=== PATIENT | female | born 1970 | race Caucasian/White ===

== ENCOUNTER 2016-06-16 00:04 | Inpatient (IN) | payer MEDICAID, OTHER ==
[2016-06-16] VITALS (8 sets, daily range): BP systolic 96–121; BP diastolic 60–85; PULSE 66–98; RESP 16–20; TEMP 95.5–98; O2SAT 92–100
[~2016-06-16] VITALS: Ht 182.9 cm; Wt 88.0 kg
[~2016-06-16 00:04] MED LIST: OXYC1TAB36 PO; TRAM50TA PO; ZOFR4TAB3 SL
[2016-06-16] MEDS ORDERED: SODIUM CHLOR 0.9% 1000 ML INJ 1,000 ML IV SCH ×2 (01:11→03:30)
[2016-06-16] MEDS ORDERED: HYDROmorphone HCL PF 2 MG/ML VIAL IVS ONE (01:15)
[2016-06-16] MEDS ORDERED: ONDANSETRON HCL 4 MG/2 ML VIAL IVP ONE (01:15)
[2016-06-16 01:35] LABS: AUTOMATED NEUTROPHIL # 5.6 TH/MM3 (1.8-7.7); BASOPHIL % 0.4 % (0.0-2.0); EOSINOPHIL # 0.1 TH/MM3 (0-0.4); HEMATOCRIT 43.1 % (35.0-46.0); HEMO FLAGS DIFF FINAL; LYMPH % 14.1 % (9.0-44.0); MEAN CELL VOLUME 87.5 FL (80.0-100.0); MEAN CORPUSCULAR HEMOGLOBIN 29.2 PG (27.0-34.0); MEAN CORPUSCULAR HGB CONC 33.4 % (32.0-36.0); MONO % 8.3 % (0.0-8.0); NEUT % 75.2 % (16.0-70.0); PLATELET COUNT 182 TH/MM3 (150-450); RED BLOOD COUNT 4.93 MIL/MM3 (4.00-5.30); RED CELL DISTRIBUTION WIDTH 12.6 % (11.6-17.2); WHITE BLOOD COUNT 7.4 TH/MM3 (4.0-11.0)
[2016-06-16 01:36] LABS: BLOOD, URINE NEG (NEG); GLUCOSE,URINE 100 mg/dL (NEG); KETONE, URINE 40 mg/dL (NEG); NITRITE,URINE NEG (NEG)
[2016-06-16 01:40] LABS: URINE COLOR AMBER (YELLW/STRAW)
[2016-06-16 01:41] LABS: BACTERIA, URINE RARE /hpf; COMMENT (UR) CULT NOT INDICATED; CULTURE IF INDICATED CULT NOT INDICATED; RBC, URINE 0-2 /hpf (0-3); SQUAMOUS EPITHELIAL CELL URINE > 8 /hpf (0-5); WBC, URINE 0-2 /hpf (0-5)
[2016-06-16 01:43] LABS: CHLORIDE 108 MEQ/L (98-107); POTASSIUM 3.5 MEQ/L (3.5-5.1); SODIUM (NA) 142 MEQ/L (136-145)
[2016-06-16 01:46] LABS: ANION GAP 9 MEQ/L (5-15); BICARBONATE 25.1 MEQ/L (21.0-32.0)
[2016-06-16 01:47] LABS: BLOOD UREA NITROGEN 17 MG/DL (7-18)
[2016-06-16 01:49] LABS: ALT (GPT) 409 U/L (10-53); AST (GOT) 599 U/L (15-37); GLOMERULAR FILTRATION RATE 71 ML/MIN (>89)
[2016-06-16 01:51] LABS: TOTAL BILIRUBIN ADULT 2.2 MG/DL (0.2-1.0)
[2016-06-16 02:02] LABS: ALKALINE PHOSPHATASE 172 U/L (45-117)
[2016-06-16] MEDS ORDERED: IOHEXOL 350 MG/ML 10 ML VIAL (for RAD DIAG) IV ONE (02:51)
--- NOTE | 2016-06-16 03:07 | RADHPO ---
EXAM DATE/TIME: 06/16/2016 02:28 [place] COMPARISON: CT ABDOMEN & PELVIS W CONTRAST, April 24, 2016, 20:41. INDICATIONS : Right upper quadrant pain with nausea and vomiting. IV CONTRAST: 94 cc Omnipaque 350 (iohexol) IV ORAL CONTRAST: No oral contrast ingested. RADIATION DOSE: 12.37 CTDIvol (mGy) MEDICAL HISTORY : Gastroesophageal reflux disease. Renal calculi. SURGICAL HISTORY : Hysterectomy. ENCOUNTER: Initial ACUITY: 1 day PAIN SCALE: 7/10 LOCATION: Right upper quadrant TECHNIQUE: Volumetric scanning of the abdomen and pelvis was performed. Using automated exposure control and ad justment of the mA and/or kV according to patient size, radiation dose was kept as low as reasonably achievable to obtain optimal diagnostic quality images. FINDINGS: LOWER LUNGS: Trace atelectasis right lung base. LIVER: Homogeneous density without lesion. There is no dilation of the biliary tree. Numerous small stones are seen in the gallbladder. Common bile duct measures approximate 6.5 mm. Possible stone in the mid duct, series 601 image 36 and possible stone in the more distal duct, series 2 image 35. SPLEEN: Normal size without lesion. PANCREAS: Pancreas is swollen and there is libia-pancreatic edema/non-organized fluid, especially around the bod y. No perceptible mass. No evidence of parenchymal necrosis. KIDNEYS: Normal in size and shape. 1 cm simple, benign cyst seen in the right mid zone There is no solid mass , stone or hydronephrosis. Unchanged focal scarring on the left. ADRENAL GLANDS: Within normal limits. VASCULAR: There is no aortic aneurysm. BOWEL/MESENTERY: The stomach, small bowel, and colon demonstrate no acute abnormality. There is no free intraperitone al air or fluid. ABDOMINAL WALL: Within normal limits. RETROPERITONEUM: There is no lymphadenopathy. BLADDER: No wall thickening or mass. REPRODUCTIVE: There are cysts of the right ovary that measure up to 32 mm in size. INGUINAL: There is no lymphadenopathy or hernia. MUSCULOSKELETAL: Within normal limits for patient age. CONCLUSION: 1. Moderate severity acute pancreatitis. Considerable peripancreatic edema but nothing organized or d rainable. No evidence of parenchymal necrosis. 2. Cholelithiasis; numerous small stones are seen in the gallbladder and the CT suggests the possibil ity of stones in the mid and distal portions of the common bile duct. Please see above. 3. Right ovarian cysts. 4. Trace atelectasis of the right lung base. Antwan Ogden MD on June 16, 2016 at 2:58 Board Certified Radiologist. This report was verified electronically.
[2016-06-16] MEDS ORDERED: HYDROmorphone HCL PF 1 MG/ML VIAL IV PUSH ONE (03:15)
--- NOTE | 2016-06-16 03:24 | PD ---
HPI Chief Complaint: GI Complaint Time Seen by Provider: 01:11 Travel History International Travel<30 days: No Contact w/Intl Traveler<30days: No Traveled to known affect area: No History of Present Illness HPI 45 year-old female presents to the emergency department by private transportation for complaint of abdominal pain since Friday morning. Patient states she is unable to tolerate oral hydration or oral intake secondary to nausea and vomiting. Patient states she's been trying to eat oatmeal and cottage cheese. Patient has had diagnosis of gallstones for a while now but has not been able to see a surgeon. Patient reportedly is scheduled to see a surgeon 28 June she was required to see a primary care provider first. Patient has had no fever or chills. No hematemesis or coffee-ground emesis no melena hematochezia. Patient is status post hysterectomy. Patient rates pain as 8/10 in intensity. Patient states pain as generalized but primarily epigastric and right upper quadrant. Patient denies any dysuria frequency or urgency and has had no flank pain. Patient denies shortness of breath or chest pain. Patient reports she has been prescribed tramadol for pain management which has provided no relief. Patient reportedly has undergone CT and ultrasound imaging of the gallbladder and kidneys to the emergency department here to the [employer] [facility] system and to [facility] in [place]. PFSH Past Medical History Narrative Medical Gallstones, kidney stones, GERD, , hysterectomy Ab1 positive tobacco use nursing notes reviewed Diminished Hearing: No Gastrointestinal Disorders: Yes (GALL STONES) GERD: Yes Kidney Stones: Yes Immunizations Current: Yes Tetanus Vaccination: < 5 Years Influenza Vaccination: No ?: Not : 4 Para: 3 Miscarriage: 1 Past Surgical History Section: Yes (X1) Gynecologic Surgery: Yes (hysterectomy and ) Hysterectomy: Yes Social History Alcohol Use: No Tobacco Use: Yes (/2 PPD) Substance Use: No Allergies-Medications (Allergen,Severity, Reaction): Coded Allergies: No Known Allergies (Verified , 06/16/16) Reported Meds & Prescriptions Reported Meds & Active Scripts Active Tramadol (Tramadol HCl) 50 Mg Tab 50 Mg PO Q8H PRN Review of Systems Except as stated in HPI: all other systems reviewed are Neg General / Constitutional: No: Fever, Chills Eyes: No: Visual changes HENT: No: Headaches, Congestion Cardiovascular: No: Chest Pain or Discomfort Respiratory: No: Shortness of Breath Gastrointestinal: Positive: Nausea, Vomiting, Abdominal Pain, No: Diarrhea, Hematemesis, Hematochezia, Constipation, Changes in Bowel Habits, Loss of Appetite Genitourinary: No: Urgency, Frequency, Dysuria, Flank Pain Musculoskeletal: No: Myalgias, Arthralgias Skin: No Rash Neurologic: No: Weakness Psychiatric: No: Anxiety Hematologic/Lymphatic: No: Lymph Node Enlargement Physical Exam Narrative GENERAL: Well-developed well-nourished female in no acute distress no respiratory distress SKIN: Warm and dry. HEAD: Normocephalic. EYES: No scleral icterus. No injection or drainage. NECK: Supple, trachea midline. No JVD or lymphadenopathy. CARDIOVASCULAR: Regular rate and rhythm without murmurs, gallops, or rubs. RESPIRATORY: Breath sounds equal bilaterally. No accessory muscle use. GASTROINTESTINAL: Abdomen soft, diffusely tender with localized tenderness to the epigastric and right upper quadrant without guarding or rebound, nondistended. MUSCULOSKELETAL: No cyanosis, or edema. BACK: Nontender without obvious deformity. No CVA tenderness. Data Data Last Documented VS Vital Signs Date Time Temp Pulse Resp B/P Pulse Ox O2 Delivery O2 Flow Rate FiO2 06/16/16 01:59 73 16 117/71 98 Room Air 06/16/16 00:13 97.3 Orders Complete Blood Count With Diff (06/16/16 01:11) Comprehensive Metabolic Panel (06/16/16 01:11) Lipase (06/16/16 01:11) Urinalysis - C+S If Indicated (06/16/16 01:11) Iv Access Insert/Monitor (06/16/16 01:11) Hydromorphone Pf Inj (Dilaudid Pf Inj) (06/16/16 01:15) Ondansetron Inj (Zofran Inj) (06/16/16 01:15) Sodium Chlor 0.9% 1000 Ml Inj (Ns 1000 M (06/16/16 01:11) Ct Abd/Pel W Iv Contrast(Rout) (06/16/16 ) Iohexol 350 Inj (Omnipaque 350 Inj) (06/16/16 02:51) Hydromorphone Pf Inj (Dilaudid Pf Inj) (06/16/16 03:15) Sodium Chlor 0.9% 1000 Ml Inj (Ns 1000 M (06/16/16 03:30) Sodium Chlor 0.9% 1000 Ml Inj (Ns 1000 M (06/16/16 03:30) NPO (06/16/16 03:24) Piperacil-Tazo 4.5 Gm Premix (Zosyn 4.5 (06/16/16 03:30) Admit To Inpatient (06/16/16 ) Vital Signs (Adult) Q4H (06/16/16 03:23) Activity Oob With Assistance (06/16/16 03:23) Admit Order (Ed Use Only) (06/16/16 ) Intake + Output JOSE.QSHIFT (06/16/16 03:23) ^ Saline Lock (06/16/16 03:25) Diet Npo (06/16/16 Breakfast) Sodium Chlor 0.9% 1000 Ml Inj (Ns 1000 M (06/16/16 03:23) Resp Oxygen Tristian C Titrat 1-4 L (06/16/16 ) Sodium Chloride 0.9% Flush (Ns Flush) (06/16/16 03:30) ^ Notify Dr: Other (06/16/16 03:25) Sodium Chloride 0.9% Flush (Ns Flush) (06/16/16 09:00) Sodium Chloride 0.9% Flush (Ns Flush) (06/16/16 09:00) Ondansetron Inj (Zofran Inj) (06/16/16 03:30) Sodium Chloride 0.9% Flush (Ns Flush) (06/16/16 03:30) Bisacodyl Supp (Dulcolax Supp) (06/16/16 03:30) Comprehensive Metabolic Panel (06/17/16 06:00) Complete Blood Count With Diff (06/17/16 06:00) Lipase (06/17/16 06:00) Scd Bilateral/Knee High JOSE.BID (06/16/16 03:23) [place] Bilateral/Knee High JOSE.QSHIFT (06/16/16 03:23) Acetaminophen (Tylenol) (06/16/16 03:30) Hydromorphone Pf Inj (Dilaudid Pf Inj) (06/16/16 03:30) Oxycodone (Roxicodone) (06/16/16 03:30) Inpatient Certification (06/16/16 ) Direct Bilirubin (06/16/16 00:25) Labs Laboratory Tests Test 06/16/16 06/16/16 00:25 01:20 White Blood Count 7.4 TH/MM3 Red Blood Count 4.93 MIL/MM3 Hemoglobin 14.4 GM/DL Hematocrit 43.1 % Mean Corpuscular Volume 87.5 FL Mean Corpuscular Hemoglobin 29.2 PG Mean Corpuscular Hemoglobin 33.4 % Concent Red Cell Distribution Width 12.6 % Platelet Count 182 TH/MM3 Mean Platelet Volume 11.7 FL Neutrophils (%) (Auto) 75.2 % Lymphocytes (%) (Auto) 14.1 % Monocytes (%) (Auto) 8.3 % Eosinophils (%) (Auto) 2.0 % Basophils (%) (Auto) 0.4 % Neutrophils # (Auto) 5.6 TH/MM3 Lymphocytes # (Auto) 1.0 TH/MM3 Monocytes # (Auto) 0.6 TH/MM3 Eosinophils # (Auto) 0.1 TH/MM3 Basophils # (Auto) 0.0 TH/MM3 CBC Comment DIFF FINAL Differential Comment Prothrombin Time 11.2 SEC Prothromb Time International 1.0 RATIO Ratio Sodium Level 142 MEQ/L Potassium Level 3.5 MEQ/L Chloride Level 108 MEQ/L Carbon Dioxide Level 25.1 MEQ/L Anion Gap 9 MEQ/L Blood Urea Nitrogen 17 MG/DL Creatinine 0.87 MG/DL Estimat Glomerular Filtration 71 ML/MIN Rate Random Glucose 76 MG/DL Calcium Level 8.9 MG/DL Total Bilirubin 2.2 MG/DL Direct Bilirubin 1.2 MG/DL Aspartate Amino Transf 599 U/L (AST/SGOT) Alanine Aminotransferase 409 U/L (ALT/SGPT) Alkaline Phosphatase 172 U/L Total Protein 7.0 GM/DL Albumin 3.6 GM/DL Lipase GREATER THAN 38496 U/L Urine Color AVA Urine Turbidity CLEAR Urine pH 8.0 Urine Specific [place] 1.028 Urine Protein 30 mg/dL Urine Glucose (UA) 100 mg/dL Urine Ketones 40 mg/dL Urine Occult Blood NEG Urine Nitrite NEG Urine Bilirubin NEG Urine Leukocyte Esterase NEG Urine RBC 0-2 /hpf Urine WBC 0-2 /hpf Urine Squamous Epithelial > 8 /hpf Cells Urine Bacteria RARE /hpf Microscopic Urinalysis Comment CULT NOT INDICATED MDM Medical Decision Making Medical Screen Exam Complete: Yes Emergency Medical Condition: Yes Medical Record Reviewed: Yes Interpretation(s) CT abd/pel w/ contrast: CONCLUSION: 1. Moderate severity acute pancreatitis. Considerable peripancreatic edema but nothing organized or drainable. No evidence of parenchymal necrosis. 2. Cholelithiasis; numerous small stones are seen in the gallbladder and the CT suggests the possibility of stones in the mid and distal portions of the common bile duct. Please see above. 3. Right ovarian cysts. 4. Trace atelectasis of the right lung base. Antwan Ogden MD on June 16, 2016 at 2:58 Board Certified Radiologist. This report was verified electronically. Vital Signs Date Time Temp Pulse Resp B/P Pulse Ox O2 Delivery O2 Flow Rate FiO2 06/16/16 01:59 73 16 117/71 98 Room Air 06/16/16 00:13 97.3 82 20 121/85 100 CBC & BMP Diagram 06/16/16 00:25 Differential Diagnosis Biliary colic, cholecystitis, pancreatitis, choledocholithiasis, gastritis, peptic ulcer disease, Narrative Course IV access obtained specimens collected and sent for resulting patient kept nothing by mouth and administer pain medication Patient with history of cholelithiasis and nephrolithiasis presents with right upper quadrant pain generalized abdominal pain and nausea vomiting with poor oral intake. Patient with diagnosis of cholelithiasis since at least April possibly February as well as kidney stones presents with persistent pain and has been instructed to follow-up with primary care provider to be referred for general surgery consult regarding need for cholecystectomy. Patient states over the past 24 hours pain has been worsening and unable to tolerate oral intake presents now for pain management and reassessment. Patient administered Dilaudid 1 mg IV along with Zofran 4 mg IV and maintenance normal saline Patient identified to have marked elevation of lipase and LFTs/transaminases CT abdomen and pelvis with IV contrast ordered Patient identified to have peripancreatic inflammatory changes and cholelithiasis with possible mid common duct stone for choledocholithiasis and acute pancreatitis with stone of the common duct; patient given additional dose of Dilaudid 1 mg IV Patient's case discussed with on-call GI as patient will require ERCP Patient's case discussed with on-call [facility] medicine service She is aware of plan to admit to [facility] is aware she'll need to undergo procedure through GI and may require surgical intervention as well. At this time patient's vital signs remained stable and in normal range. Lab values however remarkable for marked elevation of lipase and elevated LFTs with elevated total bilirubin, transaminases, and alkaline phosphatase. Critical Care Narrative Aggregate critical care time was 40 minutes. Time to perform other separately billable procedures was not included in the critical care time. My time did not include minutes spent treating any other patients simultaneously or on activities that did not directly contribute to the patient's treatment. The services I provided to this patient were to treat and/or prevent clinically significant deterioration that could result in: Sepsis septic shock I provided critical care services requiring my management, as noted below: Chart data review, documentation time, medication orders and management, vital sign assessments/reviewing monitor data, ordering and reviewing lab tests, ordering and interpreting/reviewing x-rays and diagnostic studies, care of the patient and discussion of the patient with the admitting physicians. Physician Communication Physician Communication discussed with DR Figueroa --admit to medicine will perform [facility] in am; call placed to [facility] service --discussed with Dr Chew Diagnosis Primary Impression: Choledocholithiasis with obstruction Qualified Code: K80.51 - Calculus of bile duct without cholangitis with obstruction Additional Impression: Acute pancreatitis due to calculus of common bile duct Admitting Information Admitting Physician Requests: it Elly Cottrell MD Jun 16, 2016 03:24
[2016-06-16] MEDS ORDERED: PIPERACIL-TAZO 4.5 GM PREMIX 100 ML IV SCH (03:30)
[2016-06-16] MEDS ORDERED: BISACODYL 10 MG SUPP PR PRN (03:30)
[2016-06-16] MEDS ORDERED: SODIUM CHLORIDE 0.9% FLUSH 5 ML FLUSH IVF PRN (03:30)
[2016-06-16] MEDS ORDERED: ACETAMINOPHEN 325 MG TAB PO PRN (03:30)
[2016-06-16] MEDS ORDERED: PIPERACIL-TAZO 4.5 GM PREMIX 100 ML IV ONE (03:30)
[2016-06-16] MEDS ORDERED: SODIUM CHLOR 0.9% 1000 ML INJ 1,000 ML IV ONE (03:30)
[2016-06-16 04:01] LABS: PROTHROMBIN TIME - PATIENT 11.2 SEC (9.8-11.6)
[2016-06-16] MEDS: ONDANSETRON HCL 4 MG/2 ML VIAL IVP PRN ×3 (06:19→20:42)
[2016-06-16] MEDS: HYDROmorphone HCL PF 1 MG/ML VIAL IV PRN ×4 (06:21→20:42)
[2016-06-16] MEDS: SODIUM CHLOR 0.9% 1000 ML INJ 1,000 ML IV SCH ×3 (06:24→20:42)
[2016-06-16] MEDS ORDERED: INSULIN HUMAN REGULAR 1,000 UNITS/10 ML VIAL SQ PRN (08:45)
[2016-06-16] MEDS ORDERED: METOPROLOL TARTRATE 25 MG TAB PO PRN (08:45)
[2016-06-16] MEDS: SODIUM CHLORID 0.9% 500 ML IV SCH (08:45)
[2016-06-16] MEDS: PIPERACIL-TAZO 4.5 GM PREMIX 100 ML IV SCH ×4 (09:00→20:42)
[2016-06-16] MEDS ORDERED: SODIUM CHLORIDE 0.9% FLUSH 5 ML FLUSH IVF SCH (09:00)
[2016-06-16] MEDS: SODIUM CHLORIDE 0.9% FLUSH 5 ML FLUSH FLUSH SCH ×2 (10:00→20:43)
--- NOTE | 2016-06-16 11:23 | HHI.HP ---
[facility] Primary Care Physician No Primary Care Physician Admission Diagnosis acute pancreatitis; choledocholithiasis Diagnoses: (1) Acute pancreatitis due to calculus of common bile duct (2) Choledocholithiasis with obstruction (3) Obstructive uropathy Chief Complaint: Abdominal pain Travel History International Travel<30 Days: No Contact w/Intl Traveler <30 Da: No Traveled to Known Affected Are: No History of Present Illness 45-year-old female who was recently diagnosed with cholelithiasis was brought to the ED yesterday for evaluation of an acute and worsening abdominal pain rated 10/10 in intensity and associated with emesis described as bilious and followed by dry heaves. Patient states she was unable to take any by mouth. In the past 4 months she has had abdominal pain for which she had abdomen/pelvis CT performed and revealing gallstone. She was prescribed tramadol however states yesterday she is had no relief. Patient has an appointment with her PCP on 06/28/16. She denies any GI bleed. During my exam , she has no chest pain or shortness of breath. Review of Systems Other 12 systems reviewed and are negative except for the one mentioned in history of present illness Past Family Social History Past Medical History Gallstones, kidney stones, GERD Gastrointestinal Disorders: Yes (GALL STONES) GERD: Yes Kidney Stones: Yes Past Surgical History Section: Yes (X1) Partial Hysterectomy Reported Medications Tramadol (Tramadol HCl) 50 Mg Tab 50 Mg PO Q8H PRN Allergies: Coded Allergies: No Known Allergies (Verified , 06/16/16) Family History Denies any family history of hypertension, diabetes, cancer Social History Alcohol Use: No Tobacco Use: Yes (/2 PPD) Substance Use: No Physical Exam Vital Signs Vital Signs Date Time Temp Pulse Resp B/P Pulse Ox O2 Delivery O2 Flow Rate FiO2 06/16/16 08:00 95.5 66 18 107/69 94 06/16/16 05:41 97.9 72 16 106/64 99 Room Air 06/16/16 01:59 73 16 117/71 98 Room Air 06/16/16 00:13 97.3 82 20 121/85 100 Physical Exam GENERAL: This is a well-nourished, well-developed patient, in no apparent distress. SKIN: No rashes, ecchymoses or lesions. Cool and dry. HEAD: Atraumatic. Normocephalic. No temporal or scalp tenderness. EYES: Pupils equal round and reactive. Extraocular motions intact. No scleral icterus. No injection or drainage. ENT: Nose without bleeding, purulent drainage or septal hematoma. Throat without erythema, tonsillar hypertrophy or exudate. Uvula midline. Airway patent. NECK: Trachea midline. No JVD or lymphadenopathy. Supple, nontender, no meningeal signs. CARDIOVASCULAR: Regular rate and rhythm without murmurs, gallops, or rubs. RESPIRATORY: Clear to auscultation. Breath sounds equal bilaterally. No wheezes , rales, or rhonchi. GASTROINTESTINAL: Abdomen soft, mildly tender, nondistended. No hepato- splenomegaly, or palpable masses. No guarding. MUSCULOSKELETAL: Extremities without clubbing, cyanosis, or edema. No joint tenderness, effusion, or edema noted. No calf tenderness. Negative Homans sign bilaterally. NEUROLOGICAL: Awake and alert. Cranial nerves II through XII intact. Motor and sensory grossly within normal limits. Five out of 5 muscle strength in all muscle groups. Normal speech. Laboratory Laboratory Tests Test 06/16/16 06/16/16 00:25 01:20 White Blood Count 7.4 Red Blood Count 4.93 Hemoglobin 14.4 Hematocrit 43.1 Mean Corpuscular Volume 87.5 Mean Corpuscular Hemoglobin 29.2 Mean Corpuscular Hemoglobin 33.4 Concent Red Cell Distribution Width 12.6 Platelet Count 182 Mean Platelet Volume 11.7 Neutrophils (%) (Auto) 75.2 Lymphocytes (%) (Auto) 14.1 Monocytes (%) (Auto) 8.3 Eosinophils (%) (Auto) 2.0 Basophils (%) (Auto) 0.4 Neutrophils # (Auto) 5.6 Lymphocytes # (Auto) 1.0 Monocytes # (Auto) 0.6 Eosinophils # (Auto) 0.1 Basophils # (Auto) 0.0 CBC Comment DIFF FINAL Differential Comment Prothrombin Time 11.2 Prothromb Time International 1.0 Ratio Sodium Level 142 Potassium Level 3.5 Chloride Level 108 Carbon Dioxide Level 25.1 Anion Gap 9 Blood Urea Nitrogen 17 Creatinine 0.87 Estimat Glomerular Filtration 71 Rate Random Glucose 76 Calcium Level 8.9 Total Bilirubin 2.2 Aspartate Amino Transf 599 (AST/SGOT) Alanine Aminotransferase 409 (ALT/SGPT) Alkaline Phosphatase 172 Total Protein 7.0 Albumin 3.6 Lipase GREATER THAN 31158 Urine Color AVA Urine Turbidity CLEAR Urine pH 8.0 Urine Specific [place] 1.028 Urine Protein 30 Urine Glucose (UA) 100 Urine Ketones 40 Urine Occult Blood NEG Urine Nitrite NEG Urine Bilirubin NEG Urine Leukocyte Esterase NEG Urine RBC 0-2 Urine WBC 0-2 Urine Squamous Epithelial > 8 Cells Urine Bacteria RARE Microscopic Urinalysis Comment CULT NOT INDICATED Result Diagram: 06/16/16 0025 06/16/16 0025 Imaging Last Impressions Abdomen/Pelvis CT 06/16/16 0000 Signed Impressions: Service Date/Time: Thursday, June 16, 2016 02:28 - CONCLUSION: 1. Moderate severity acute pancreatitis. Considerable peripancreatic edema but nothing organized or drainable. No evidence of parenchymal necrosis. 2. Cholelithiasis ; numerous small stones are seen in the gallbladder and the CT suggests the possibility of stones in the mid and distal portions of the common bile duct. Please see above. 3. Right ovarian cysts. 4. Trace atelectasis of the right lung base. Antwan Ogden MD Assessment and Plan Problem List: (1) Acute pancreatitis due to calculus of common bile duct ICD Code: K85.90 Status: Acute (2) Choledocholithiasis with obstruction ICD Code: K80.51 Status: Acute Assessment and Plan 45-year-old female with Acute pancreatitis due to alcohol use of common bile duct: CT abdomen/pelvis noted and reviewed by me with finding of Moderate severity acute pancreatitis. Considerable peripancreatic edema but nothing organized or drainable. numerous small stones are seen in the gallbladder and the CT suggests the possibility of stones in the mid and distal portions of the common bile duct. Gastroenterology consultation pending for possible evaluation for ERCP. Continue with IV Zosyn, nothing by mouth, IV fluid hydration, pain management accordingly an anti-emetics. Monitor lipase Choledocholithiasis with obstruction: CT abdomen/pelvis noted and reviewed by me with finding of Cholelithiasis; numerous small stones are seen in the gallbladder and the CT suggests the possibility of stones in the mid and distal portions of the common bile duct. Gastroenterology consultation pending for possible evaluation for ERCP. Currently on IV Zosyn. May consider general surgery evaluation versus IR Transaminitis: Likely from above processes, however check hepatitis panel GERD: PPI DD prophylaxis: Bilateral SCDs Code Status Full code Discussed Condition With Patient Physician Certification 2 Midnight Certification Type: Admission for Inpatient Services Order for Inpatient Services The services are ordered in accordance with Medicare regulations or non- Medicare payer requirements, as applicable. In the case of services not specified as inpatient-only, they are appropriately provided as inpatient services in accordance with the 2-midnight benchmark. Estimated LOS (days): 2 days is the estimated time the patient will need to remain in the hospital, assuming treatment plan goals are met and no additional complications. Post-Hospital Plan: Not yet determined Problem Qualifiers (1) Choledocholithiasis with obstruction: Qualified Code: K80.51 - Calculus of bile duct without cholangitis with obstruction Joesph Orellana MD Jun 16, 2016 11:23
[2016-06-16] MEDS: LACTATED RINGER'S 1000 ML IV SCH (12:00)
--- NOTE | 2016-06-16 12:54 | PD.CONS ---
HPI History of Present Illness This is a 45 year old female being seen by GI due to acute pancreatitis and cholelithiasis. Patient was recently diagnosed with cholelithiasis. She came to the ER due to severe abdominal pain and emesis (bilious) with dry heaving x3 days. She reports she hasn't been able to tolerate food over the past 3 days. Reports abdominal pain "all over." These issues have been occurring for 3-4 months per patient. Has medical history of gallstones, kidney stones, and GERD. Denies hematemesis or blood in stools. No constipation or diarrhea. She is scheduled for ERCP this afternoon. (Alexandra Quinn) PFS Past Medical History -Gallstones -Kidney stones -GERD Past Surgical History -C section -Partial hysterectomy (Alexandra Quinn) Coded Allergies: No Known Allergies (Verified , 06/16/16) Medications Current Medications Medications (Trade) Dose Ordered Sig/Kaden Route PRN Reason Start Time Stop Time Status Last Admin Dose Admin Sodium Chloride (NS 1000 ml Inj) 1,000 ml @ 100 mls/hr Q10H IV 06/16/16 03:23 06/16/16 06:24 IV Flush (NS Flush) 2 ml UNSCH PRN FLUSH FLUSH AFTER USING IV ACCESS 06/16/16 03:30 IV Flush (NS Flush) 2 ml BID FLUSH 06/16/16 09:00 06/16/16 10:00 Ondansetron HCl (Zofran Inj) 4 mg Q6H PRN IVP NAUSEA OR VOMITING 06/16/16 03:30 06/16/16 09:59 Bisacodyl (Dulcolax Supp) 10 mg DAILY PRN [place] CONSTIPATION 06/16/16 03:30 Acetaminophen (Tylenol) 650 mg Q6H PRN PO FEVER 06/16/16 03:30 Hydromorphone HCl (Dilaudid Pf Inj) 1 mg Q3H PRN IV Pain 6-10 06/16/16 03:30 06/16/16 10:00 Oxycodone HCl 5 mg 5 mg Q4H PRN PO PAIN SCALE 3 TO 5 06/16/16 03:30 Piperacillin Sod/ Tazobactam Sod 100 ml @ 200 mls/hr Q6H IV 06/16/16 09:00 06/16/16 11:34 Lactated Ringer's 1,000 ml @ 30 mls/hr Q24H IV 06/16/16 08:45 Sodium Chloride (NS 500 ml Inj) 500 ml @ 30 mls/hr [id number] IV 06/16/16 08:45 06/17/16 08:44 Nicotine (Habitrol 14 Mg Patch.24 Hr) 1 patch DAILY TD 06/16/16 11:30 Miscellaneous Information 1 DAILY TD 06/17/16 09:00 Family History No family history of cancer. Social History -Denies ETOH -/2 PPD Tobacco -Denies illicit drug use. (Alexandra Quinn) Review of Systems Constitutional: COMPLAINS OF: Weight loss, Chills, Change in appetite, DENIES : Diaphoretic episodes, Fatigue, Fever, Weight gain, Dizziness, Night Sweats Endocrine: DENIES: Polyuria Eyes: DENIES: Blurred vision Ears, nose, mouth, throat: DENIES: Hearing loss, Vertigo, Oral lesions, Throat pain, Hoarseness Respiratory: DENIES: Cough, Wheezing, Hemoptysis, Sputum production, Shortness of breath Cardiovascular: DENIES: Chest pain, Palpitations, Syncope, Lower Extremity Edema Gastrointestinal: COMPLAINS OF: Abdominal pain, Nausea, Vomiting, Anorexia, Swelling of Abdomen, DENIES: Black stools, Bloody stools, Constipation, Diarrhea, Difficulty Swallowing, Odynophagia, Heartburn, Hematemesis Genitourinary: DENIES: Urinary frequency, Urinary incontinence, Urgency, Hematuria, Dysuria, Nocturia Musculoskeletal: DENIES: Joint pain, Muscle aches, Stiffness, Joint Swelling, Back pain, Neck pain Integumentary: DENIES: Abnormal pigmentation, Pruritus, Rash, Jaundice Hematologic/lymphatic: DENIES: Bruising Immunologic/allergic: DENIES: Eczema Neurologic: DENIES: Abnormal gait, Headache, Localized weakness Psychiatric: DENIES: Anxiety, Confusion, Mood changes, Depression, Agitation, Suicidal Ideation (Alexandra Quinn) GI Exam Vitals I&O Vital Signs Date Time Temp Pulse Resp B/P Pulse Ox O2 Delivery O2 Flow Rate FiO2 06/16/16 08:00 95.5 66 18 107/69 94 06/16/16 05:41 97.9 72 16 106/64 99 Room Air 06/16/16 01:59 73 16 117/71 98 Room Air 06/16/16 00:13 97.3 82 20 121/85 100 I/O 06/15/16 06/15/16 06/15/16 06/16/16 06/16/16 06/16/16 07:00 15:00 23:00 07:00 15:00 23:00 Intake Total 2100 ml Output Total 150 ml Balance 1950 ml Intake IV Total 2100 ml Output Urine Total 150 ml # Voids 2 Imaging Last Impressions Abdomen/Pelvis CT 06/16/16 0000 Signed Impressions: Service Date/Time: Thursday, June 16, 2016 02:28 - CONCLUSION: 1. Moderate severity acute pancreatitis. Considerable peripancreatic edema but nothing organized or drainable. No evidence of parenchymal necrosis. 2. Cholelithiasis ; numerous small stones are seen in the gallbladder and the CT suggests the possibility of stones in the mid and distal portions of the common bile duct. Please see above. 3. Right ovarian cysts. 4. Trace atelectasis of the right lung base. Antwan Ogden MD Laboratory Test 06/16/16 06/16/16 00:25 01:20 White Blood Count 7.4 TH/MM3 Red Blood Count 4.93 MIL/MM3 Hemoglobin 14.4 GM/DL Hematocrit 43.1 % Mean Corpuscular Volume 87.5 FL Mean Corpuscular Hemoglobin 29.2 PG Mean Corpuscular Hemoglobin 33.4 % Concent Red Cell Distribution Width 12.6 % Platelet Count 182 TH/MM3 Mean Platelet Volume 11.7 FL Neutrophils (%) (Auto) 75.2 % Lymphocytes (%) (Auto) 14.1 % Monocytes (%) (Auto) 8.3 % Eosinophils (%) (Auto) 2.0 % Basophils (%) (Auto) 0.4 % Neutrophils # (Auto) 5.6 TH/MM3 Lymphocytes # (Auto) 1.0 TH/MM3 Monocytes # (Auto) 0.6 TH/MM3 Eosinophils # (Auto) 0.1 TH/MM3 Basophils # (Auto) 0.0 TH/MM3 CBC Comment DIFF FINAL Differential Comment Prothrombin Time 11.2 SEC Prothromb Time International 1.0 RATIO Ratio Sodium Level 142 MEQ/L Potassium Level 3.5 MEQ/L Chloride Level 108 MEQ/L Carbon Dioxide Level 25.1 MEQ/L Anion Gap 9 MEQ/L Blood Urea Nitrogen 17 MG/DL Creatinine 0.87 MG/DL Estimat Glomerular Filtration 71 ML/MIN Rate Random Glucose 76 MG/DL Calcium Level 8.9 MG/DL Total Bilirubin 2.2 MG/DL Direct Bilirubin 1.2 MG/DL Aspartate Amino Transf 599 U/L (AST/SGOT) Alanine Aminotransferase 409 U/L (ALT/SGPT) Alkaline Phosphatase 172 U/L Total Protein 7.0 GM/DL Albumin 3.6 GM/DL Lipase GREATER THAN 21433 U/L Urine Color AVA Urine Turbidity CLEAR Urine pH 8.0 Urine Specific [place] 1.028 Urine Protein 30 mg/dL Urine Glucose (UA) 100 mg/dL Urine Ketones 40 mg/dL Urine Occult Blood NEG Urine Nitrite NEG Urine Bilirubin NEG Urine Leukocyte Esterase NEG Urine RBC 0-2 /hpf Urine WBC 0-2 /hpf Urine Squamous Epithelial > 8 /hpf Cells Urine Bacteria RARE /hpf Microscopic Urinalysis Comment CULT NOT INDICATED Physical Examination HEENT: PERRLA NECK: Neck is supple, trachea midline CHEST: CTA CARDIAC: RRR ABDOMEN: Obese, guarding, tenderness to palpation all quadrants, bowel sounds present in all 4 quadrants EXTREMITIES: No peripheral edema SKIN: Normal, no jaundice MAPPING ENGINEER: A&O x3. (Alexandra Quinn) Assessment and Plan Plan ASSESSMENT: -Cholelithiasis--Abdomen/Pelvis CT- Moderate severity acute pancreatitis. Considerable peripancreatic edema but nothing organized or drainable. No evidence of parenchymal necrosis. 2. Cholelithiasis; numerous small stones are seen in the gallbladder and the CT suggests the possibility of stones in the mid and distal portions of the common bile duct. ERCP today. -Acute Pancreatitis--Abdomen/Pelvis CT as above. [place] [id number]. PLAN: -ERCP today -Monitor lipase -Further recommendations to follow based on results of above. Patient seen and examined by Dr. Hollins and myself. (Alexandra Quinn) Physician Comments Seen and examined with REAL ESTATE DEVELOPER, biliary pancreatitis. Aggressive ivf rehydration. ERCP today. GS consult. Thank you (Cher Hollins MD) Alexandra Quinn Jun 16, 2016 12:54 Cher Hollins MD Jun 16, 2016 13:15
[2016-06-16] MEDS ORDERED: IOHEXOL 350 MG/ML 100 ML BTL (for RAD DIAG) OTHER ONE (13:53)
[2016-06-16] MEDS ORDERED: *MEPERIDINE 25 MG INJ VIAL PERIprocedural Use ONLY ONE (14:38)
[2016-06-16] MEDS ORDERED: *PROMETHAZINE 25 MG/ML VIAL PERIprocedural use ONLY ONE (14:43)
[2016-06-16] MEDS ORDERED: *ONDANSETRON 4 MG VIAL PERIprocedural Use ONLY ONE (14:43)
[2016-06-16] MEDS ORDERED: PROPOFOL 200 MG/20 ML AMP IV ONE (14:50)
[2016-06-16] MEDS ORDERED: DO NOT ADM ANY ANTICOAGULANT DRUGS XX PRN (15:00)
--- NOTE | 2016-06-16 16:06 | RADRPT ---
EXAM DATE/TIME: 06/16/2016 13:56 [facility] COMPARISON: No previous studies available for comparison. INDICATIONS : Obstruction. FLUORO TIME: 4:16 minutes IMAGE COUNT: 7 CONTRAST: Instilled by Ordering Physician MEDICAL HISTORY : Gastroesophageal reflux disease. Renal calculi. Gallstones. SURGICAL HISTORY : Hysterectomy. section. ENCOUNTER: Initial ACUITY: 1 day PAIN SCORE: Non-responsive. LOCATION: Abdomen. FINDINGS: Spot films reveal numerous gallstones in the gallbladder. Initial film does reveal a filling defect i n the distal common bile duct as well as additional air bubbles. CONCLUSION: ERCP as above. Tyler Bergman MD on June 16, 2016 at 16:03 Board Certified Radiologist. This report was verified electronically.
[2016-06-16] MEDS: NICOTINE 14 MG/24 HR PATCH TD SCH (17:45)
[2016-06-17] MEDS: SODIUM CHLORID 0.9% 500 ML IV SCH (01:25)
[2016-06-17] MEDS: PIPERACIL-TAZO 4.5 GM PREMIX 100 ML IV SCH ×4 (01:59→22:30)
[2016-06-17] MEDS: ONDANSETRON HCL 4 MG/2 ML VIAL IVP PRN (02:00)
[2016-06-17] MEDS: LACTATED RINGER'S 1000 ML IV SCH (02:00)
[2016-06-17] MEDS: HYDROmorphone HCL PF 1 MG/ML VIAL IV PRN ×5 (02:00→22:31)
[2016-06-17] MEDS: SODIUM CHLOR 0.9% 1000 ML INJ 1,000 ML IV SCH ×2 (02:00→19:32)
[2016-06-17 07:10] LABS: AUTOMATED NEUTROPHIL # 8.8 TH/MM3 (1.8-7.7); BASOPHIL % 0.1 % (0.0-2.0); EOSINOPHIL # 0.1 TH/MM3 (0-0.4); EOSINOPHIL % 0.7 % (0.0-4.0); HEMATOCRIT 37.7 % (35.0-46.0); HEMO FLAGS DIFF FINAL; LYMPH % 10.8 % (9.0-44.0); LYMPHOCYTE # 1.2 TH/MM3 (1.0-4.8); MEAN CELL VOLUME 89.9 FL (80.0-100.0); MEAN CORPUSCULAR HEMOGLOBIN 30.4 PG (27.0-34.0); MEAN CORPUSCULAR HGB CONC 33.9 % (32.0-36.0); MONO % 7.2 % (0.0-8.0); NEUT % 81.2 % (16.0-70.0); PLATELET COUNT 134 TH/MM3 (150-450); RED CELL DISTRIBUTION WIDTH 13.6 % (11.6-17.2); WHITE BLOOD COUNT 10.8 TH/MM3 (4.0-11.0)
[2016-06-17 07:25] LABS: ALKALINE PHOSPHATASE 143 U/L (45-117); TOTAL BILIRUBIN ADULT 1.8 MG/DL (0.2-1.0)
[2016-06-17 07:27] LABS: ALT (GPT) 248 U/L (10-53); ANION GAP 10 MEQ/L (5-15); BICARBONATE 18.4 MEQ/L (21.0-32.0); BLOOD UREA NITROGEN 9 MG/DL (7-18); CHLORIDE 111 MEQ/L (98-107); GLOMERULAR FILTRATION RATE 79 ML/MIN (>89); SODIUM (NA) 139 MEQ/L (136-145)
[2016-06-17 07:29] LABS: AST (GOT) 159 U/L (15-37); POTASSIUM 3.8 MEQ/L (3.5-5.1)
[2016-06-17 08:06] VITALS: BP 102/55; PULSE 90; RESP 16; TEMP 97.9; O2SAT 98
[2016-06-17] MEDS: REMOVE OLD PATCH TD SCH (08:17)
[2016-06-17] MEDS: SODIUM CHLORIDE 0.9% FLUSH 5 ML FLUSH FLUSH SCH ×2 (08:17→22:30)
[2016-06-17] MEDS: NICOTINE 14 MG/24 HR PATCH TD SCH (08:18)
[2016-06-17 08:25] VITALS: O2SAT 98
--- NOTE | 2016-06-17 09:40 | MB ---
cc: OBED HERZOG DATE OF EVALUATION 06/17/2016 REASON FOR CONSULTATION Choledocholithiasis. PHYSICIAN REQUESTING CONSULTATIONS Dr. Hollins of Gastroenterology HISTORY OF PRESENT ILLNESS The patient is a 45-year-old female who was admitted to the hospital with acute pancreatitis and choledocholithiasis. The patient has had previous epigastric abdominal pain related to gallstones and apparently had trouble scheduling surgery electively. The patient at this point in time had severe pain, more severe than before and with significant vomiting. The patient denies any hematemesis or diarrhea or constipation, fevers, chills, night sweats or any other complaints. The patient was found on laboratory values to have elevated T-bili 2.2 and elevated transaminases. The patient was admitted and Gastroenterology was consulted. The patient underwent an ERCP on 06/16/2016. General Surgery is consulted for evaluation of possible cholecystectomy. REVIEW OF SYSTEMS A 12-point review of systems was reviewed with the patient and is negative except for the pertinent positives mentioned above in the History of Present Illness. PAST MEDICAL HISTORY 1. History of gallstones. 2. Kidney stones gas. 3. Gastroesophageal reflux. 4. The neck. Disease. PAST SURGICAL HISTORY . Hysterectomy. ALLERGIES No known drug allergies. MEDICATIONS Tramadol p.r.n. SOCIAL HISTORY The patient has smokes half-pack of cigarettes per day. FAMILY HISTORY Noncontributory. PHYSICAL EXAMINATION VITAL SIGNS: Blood pressure 102/55, heart rate 90, respiratory rate 16, temperature 97.9 degrees. GENERAL: The patient is a well-developed, well-nourished female in no acute distress. She does not appear acute or chronically ill. HEAD: Normocephalic, atraumatic. EYES: Pupils are round and regular to accommodation and to light. Sclerae is anicteric. ENT: Mucous membranes are moist. NECK: Supple. No JVD. LUNGS: Clear to auscultation bilaterally. Nonlabored breathing pattern. HEART: Regular rate and rhythm. No murmurs. ABDOMEN: Soft, tender to palpation in the epigastric area, subjectively without rebound tenderness or guarding. No surgical incisions. Normal bowel sounds. No ascites. No organomegaly. BACK: No CVA tenderness. EXTREMITIES: No clubbing, cyanosis or edema. NEUROLOGIC EXAMINATION: The patient is oriented x 3. Nonfocal peripheral exam. Cranial nerves II-XII grossly intact. LABORATORY VALUES Amylase is 3315, down from greater than 30,000. T-bili is 1.8, down to 2.2. White blood cell count is 10.8, up from 7.4. IMAGING STUDIES Ct abdomen and pelvis shows pancreatitis. ASSESSMENT AND PLAN The patient is a 45-year-old female with pancreatitis, status post ERCP, now resolving. The patient does have significant improvement in pain but is still having some epigastric pain and still has significantly elevated amylase in the 3000 range. I discussed with the patient the treatment of pancreatitis which is nonoperative management and which was followed by semi-elective laparoscopic cholecystectomy after resolution of pancreatitis for prevention of further episodes of gallstone pancreatitis. She understands this and would like to proceed to laparoscopic appendectomy as soon as possible. All of her questions were answered to her satisfaction. We will check amylase and lipase in the a.m. tomorrow morning and if they continue to resolve and the patient clinically continues to resolve as well, we will plan operation in the next 24-48 hours. Thank you very much for this consultation. MD VALENTINA Sher/YANELY /8:47 AM /9:26 AM
[2016-06-17 12:10] VITALS: BP 114/20; PULSE 86; RESP 16; TEMP 97.6; O2SAT 99
--- NOTE | 2016-06-17 13:16 | HHI.PR ---
Subjective Remarks Follow-up acute pancreatitis/cholelithiasis/choledocholithiasis 06/17/16-patient seen and examined, reports some improvement of abdominal pain. Lipase trending down. No nausea and vomiting. Seen by surgery and plan for lap cholecystectomy tomorrow. Objective Vitals Vital Signs Date Time Temp Pulse Resp B/P Pulse Ox O2 Delivery O2 Flow Rate FiO2 06/17/16 12:10 97.6 86 16 114/20 99 06/17/16 08:25 98 21 06/17/16 08:18 Room Air 06/17/16 08:06 97.9 90 16 102/55 98 06/16/16 23:35 98.0 98 16 105/60 92 06/16/16 19:20 97.9 71 16 107/64 95 06/16/16 18:59 Room Air 06/16/16 16:00 95.7 76 18 96/62 98 06/16/16 14:50 88 16 136/85 95 Room Air 06/16/16 14:40 77 16 126/78 95 Room Air 06/16/16 14:30 97.4 91 16 141/83 95 Room Air I/O 06/16/16 06/16/16 06/16/16 06/17/16 06/17/16 06/17/16 07:00 15:00 23:00 07:00 15:00 23:00 Intake Total 2100 ml 1391 ml 1399 ml 1332 ml Output Total 150 ml 75 ml Balance 1950 ml 1316 ml 1399 ml 1332 ml Intake Oral 0 ml 820 ml 480 ml IV Total 2100 ml 891 ml 579 ml 852 ml Other 500 ml Output Urine Total 150 ml 0 ml Emesis 75 ml Estimated Blood Loss 0 ml Other 0 ml # Voids 2 3 5 3 # Bowel Movements 0 0 0 Result Diagram: 06/17/16 0600 06/17/16 0600 Imaging Last Impressions GI Procedure 06/16/16 0000 Signed Impressions: Service Date/Time: Thursday, June 16, 2016 13:56 - CONCLUSION: ERCP as above. Tyler Bergman MD Abdomen/Pelvis CT 06/16/16 0000 Signed Impressions: Service Date/Time: Thursday, June 16, 2016 02:28 - CONCLUSION: 1. Moderate severity acute pancreatitis. Considerable peripancreatic edema but nothing organized or drainable. No evidence of parenchymal necrosis. 2. Cholelithiasis ; numerous small stones are seen in the gallbladder and the CT suggests the possibility of stones in the mid and distal portions of the common bile duct. Please see above. 3. Right ovarian cysts. 4. Trace atelectasis of the right lung base. Antwan Ogden MD Objective Remarks GENERAL: NAD SKIN: Warm and dry. HEAD: Normocephalic. EYES: No scleral icterus. No injection or drainage. NECK: Supple, trachea midline. No JVD or lymphadenopathy. CARDIOVASCULAR: Regular rate and rhythm without murmurs, gallops, or rubs. RESPIRATORY: Breath sounds equal bilaterally. No accessory muscle use. GASTROINTESTINAL: Abdomen soft, mildly tender, nondistended. MUSCULOSKELETAL: No cyanosis, or edema. BACK: Nontender without obvious deformity. No CVA tenderness. A/P Problem List: (1) Acute pancreatitis due to calculus of common bile duct ICD Code: K85.90 Status: Acute (2) Choledocholithiasis with obstruction ICD Code: K80.51 Status: Acute (3) Obstructive uropathy ICD Code: N13.9 Status: Acute Assessment and Plan 45-year-old female with Acute pancreatitis due to alcohol use of common bile duct: CT abdomen/pelvis with finding of Moderate severity acute pancreatitis. Appreciate input from gastroenterology, patient started post ERCP. Improving lipase. Continue with IV Zosyn, IV fluid hydration, pain management accordingly an anti-emetics. Monitor lipase Cholelithiasis /Choledocholithiasis with obstruction: CT abdomen/pelvis with finding of Cholelithiasis. Appreciate input from photocopying equipment mechanic, patient started post ERCP. General surgery consulted and plan for lap cholecystectomy tomorrow a very 2016. Currently on IV Zosyn. Transaminitis: Likely from above processes GERD: PPI DD prophylaxis: Bilateral SCDs Problem Qualifiers (1) Choledocholithiasis with obstruction: Qualified Code: K80.51 - Calculus of bile duct without cholangitis with obstruction Joesph Orellana MD Jun 17, 2016 13:16
--- NOTE | 2016-06-17 13:42 | HHI.GIFU ---
Subjective Remarks Resting in bed. States she is feeling much better. No n/v. Tolerating clears. States she is going to have her lap. cholecystectomy tomorrow. Objective Vitals I&O Vital Signs Date Time Temp Pulse Resp B/P Pulse Ox O2 Delivery O2 Flow Rate FiO2 06/17/16 12:10 97.6 86 16 114/20 99 06/17/16 08:25 98 21 06/17/16 08:18 Room Air 06/17/16 08:06 97.9 90 16 102/55 98 06/16/16 23:35 98.0 98 16 105/60 92 06/16/16 19:20 97.9 71 16 107/64 95 06/16/16 18:59 Room Air 06/16/16 16:00 95.7 76 18 96/62 98 06/16/16 14:50 88 16 136/85 95 Room Air 06/16/16 14:40 77 16 126/78 95 Room Air 06/16/16 14:30 97.4 91 16 141/83 95 Room Air I/O 06/16/16 06/16/16 06/16/16 06/17/16 06/17/16 06/17/16 07:00 15:00 23:00 07:00 15:00 23:00 Intake Total 2100 ml 1391 ml 1399 ml 1332 ml Output Total 150 ml 75 ml Balance 1950 ml 1316 ml 1399 ml 1332 ml Intake Oral 0 ml 820 ml 480 ml IV Total 2100 ml 891 ml 579 ml 852 ml Other 500 ml Output Urine Total 150 ml 0 ml Emesis 75 ml Estimated Blood Loss 0 ml Other 0 ml # Voids 2 3 5 3 # Bowel Movements 0 0 0 Laboratory Laboratory Tests Test 06/17/16 06:00 White Blood Count 10.8 Red Blood Count 4.20 Hemoglobin 12.8 Hematocrit 37.7 Mean Corpuscular Volume 89.9 Mean Corpuscular Hemoglobin 30.4 Mean Corpuscular Hemoglobin 33.9 Concent Red Cell Distribution Width 13.6 Platelet Count 134 Mean Platelet Volume 11.3 Neutrophils (%) (Auto) 81.2 Lymphocytes (%) (Auto) 10.8 Monocytes (%) (Auto) 7.2 Eosinophils (%) (Auto) 0.7 Basophils (%) (Auto) 0.1 Neutrophils # (Auto) 8.8 Lymphocytes # (Auto) 1.2 Monocytes # (Auto) 0.8 Eosinophils # (Auto) 0.1 Basophils # (Auto) 0.0 CBC Comment DIFF FINAL Differential Comment Sodium Level 139 Potassium Level 3.8 Chloride Level 111 Carbon Dioxide Level 18.4 Anion Gap 10 Blood Urea Nitrogen 9 Creatinine 0.79 Estimat Glomerular Filtration 79 Rate Random Glucose 67 Calcium Level 8.1 Total Bilirubin 1.8 Aspartate Amino Transf 159 (AST/SGOT) Alanine Aminotransferase 248 (ALT/SGPT) Alkaline Phosphatase 143 Total Protein 5.5 Albumin 2.6 Lipase 3315 Imaging Last Impressions GI Procedure 06/16/16 0000 Signed Impressions: Service Date/Time: Thursday, June 16, 2016 13:56 - CONCLUSION: ERCP as above. Tyler Bergman MD Abdomen/Pelvis CT 06/16/16 0000 Signed Impressions: Service Date/Time: Thursday, June 16, 2016 02:28 - CONCLUSION: 1. Moderate severity acute pancreatitis. Considerable peripancreatic edema but nothing organized or drainable. No evidence of parenchymal necrosis. 2. Cholelithiasis ; numerous small stones are seen in the gallbladder and the CT suggests the possibility of stones in the mid and distal portions of the common bile duct. Please see above. 3. Right ovarian cysts. 4. Trace atelectasis of the right lung base. Antwan Ogden MD Physical Exam HEENT: Normocephalic; atraumatic; no jaundice. CHEST: CTA CARDIAC: RRR ABDOMEN: Soft, nondistended, nontender; no hepatosplenomegaly; bowel sounds are present in all four quadrants. EXTREMITIES: No clubbing, cyanosis, or edema. SKIN: Normal; no rash; no jaundice. STORAGE SOLUTIONS ARCHITECT: No focal deficits; alert and oriented times three. Assessment and Plan Plan ASSESSMENT: -Cholelithiasis. Abdomen/Pelvis CT (06/16/16)----> 1. Moderate severity acute pancreatitis. Considerable peripancreatic edema but nothing organized or drainable. No evidence of parenchymal necrosis. 2. Cholelithiasis; numerous small stones are seen in the gallbladder and the CT suggests the possibility of stones in the mid and distal portions of the common bile duct. Please see above. 3. Right ovarian cysts. 4. Trace atelectasis of the right lung base. S/P ERCP with sphincterotomy, balloon sweep, stone removal, CBD lavage----> CBD stricture, gallstone fragments. LFT improving, T. Bili 1.8, AST 159, ALT 248, Alk Phosph 143. Lipase improved 3315. GS following, patient states she is having cholecystectomy tomorrow. -Acute Pancreatitis. CT as above. Lipase improved, 3315. Clinically improved. PLAN: - Clear liquids - PPI - CMP, Lipase in am - GS following - Supportive care - Further recommendations to follow based on results of above - Pt seen and examined by Dr. Arias and myself and this note is written on his behalf. Emelyn Downs Jun 17, 2016 13:42
[2016-06-17] MEDS: SODIUM CHLORIDE 0.9% FLUSH 5 ML FLUSH FLUSH PRN ×2 (14:12→18:56)
[2016-06-17 16:25] VITALS: BP 125/77; PULSE 88; RESP 18; TEMP 98.3; O2SAT 97
[2016-06-17 20:03] VITALS: BP 127/74; PULSE 104; RESP 18; TEMP 100.2; O2SAT 95
[2016-06-18] VITALS (7 sets, daily range): BP systolic 106–138; BP diastolic 64–85; PULSE 80–107; RESP 16–20; TEMP 96.3–99.9; O2SAT 93–97
[2016-06-18] MEDS: PIPERACIL-TAZO 4.5 GM PREMIX 100 ML IV SCH ×3 (03:33→14:12)
[2016-06-18] MEDS: SODIUM CHLOR 0.9% 1000 ML INJ 1,000 ML IV SCH (04:40)
[2016-06-18] MEDS ORDERED: LACTATED RINGER'S 1000 ML IV SCH (06:45)
[2016-06-18 08:51] LABS: ALKALINE PHOSPHATASE 135 U/L (45-117); ALT (GPT) 163 U/L (10-53); ANION GAP 10 MEQ/L (5-15); AST (GOT) 56 U/L (15-37); BICARBONATE 19.8 MEQ/L (21.0-32.0); BLOOD UREA NITROGEN 6 MG/DL (7-18); CHLORIDE 107 MEQ/L (98-107); GLOMERULAR FILTRATION RATE 88 ML/MIN (>89); POTASSIUM 3.5 MEQ/L (3.5-5.1); SODIUM (NA) 137 MEQ/L (136-145); TOTAL BILIRUBIN ADULT 1.5 MG/DL (0.2-1.0)
[2016-06-18] MEDS: REMOVE OLD PATCH TD SCH (09:00)
[2016-06-18] MEDS: SODIUM CHLORIDE 0.9% FLUSH 5 ML FLUSH FLUSH SCH (09:00)
[2016-06-18] MEDS: NICOTINE 14 MG/24 HR PATCH TD SCH (09:08)
--- NOTE | 2016-06-18 09:52 | HHI.PR ---
Subjective Remarks Follow-up acute pancreatitis/cholelithiasis/choledocholithiasis 06/17/16-patient seen and examined, reports some improvement of abdominal pain. Lipase trending down. No nausea and vomiting. Seen by surgery and plan for lap cholecystectomy tomorrow. 06/18/16-patient seen and examined, currently nothing by mouth pending lab cholecystectomy. Lipase 301. She denies any abdominal pain. Objective Vitals Vital Signs Date Time Temp Pulse Resp B/P Pulse Ox O2 Delivery O2 Flow Rate FiO2 06/18/16 08:00 97.7 97 20 109/70 95 06/18/16 04:00 99.5 102 16 113/67 96 06/18/16 00:00 99.9 107 17 112/66 93 06/17/16 20:03 100.2 104 18 127/74 95 06/17/16 16:25 98.3 88 18 125/77 97 06/17/16 12:10 97.6 86 16 114/20 99 I/O 06/17/16 06/17/16 06/17/16 06/18/16 06/18/16 06/18/16 07:00 15:00 23:00 07:00 15:00 23:00 Intake Total 1332 ml 2180 ml 480 ml 0 ml Balance 1332 ml 2180 ml 480 ml 0 ml Intake Oral 480 ml 2180 ml 480 ml 0 ml IV Total 852 ml # Voids 3 7 6 4 # Bowel Movements 0 6 1 Result Diagram: 06/17/16 0600 06/18/16 0729 Objective Remarks GENERAL: NAD SKIN: Warm and dry. HEAD: Normocephalic. EYES: No scleral icterus. No injection or drainage. NECK: Supple, trachea midline. No JVD or lymphadenopathy. CARDIOVASCULAR: Regular rate and rhythm without murmurs, gallops, or rubs. RESPIRATORY: Breath sounds equal bilaterally. No accessory muscle use. GASTROINTESTINAL: Abdomen soft, mildly tender, nondistended. MUSCULOSKELETAL: No cyanosis, or edema. BACK: Nontender without obvious deformity. No CVA tenderness. A/P Problem List: (1) Acute pancreatitis due to calculus of common bile duct ICD Code: K85.90 Status: Acute (2) Choledocholithiasis with obstruction ICD Code: K80.51 Status: Acute (3) Obstructive uropathy ICD Code: N13.9 Status: Acute Assessment and Plan 45-year-old female with Acute pancreatitis due to alcohol use of common bile duct: Now resolved as lipase of [address] abdomen/pelvis with finding of Moderate severity acute pancreatitis. Appreciate input from gastroenterology, patient started post ERCP. Continue with IV Zosyn, IV fluid hydration, pain management accordingly an anti-emetics. Monitor lipase Cholelithiasis /Choledocholithiasis with obstruction: CT abdomen/pelvis with finding of Cholelithiasis. Appreciate input from cloth checker, patient started post ERCP. General surgery consulted and plan for lap cholecystectomy today 06/18/16. Nothing by mouth and Currently on IV Zosyn. Transaminitis: Likely from above processes GERD: PPI DD prophylaxis: Bilateral SCDs Discharge Planning Likely discharge within the next 24 hours Problem Qualifiers (1) Choledocholithiasis with obstruction: Qualified Code: K80.51 - Calculus of bile duct without cholangitis with obstruction Joesph Orellana MD Jun 18, 2016 09:52
[2016-06-18] MEDS ORDERED: ONDANSETRON HCL 4 MG/2 ML VIAL IV PUSH ONE (12:00)
[2016-06-18] MEDS ORDERED: NEOSTIGMINE 3 MG/3 ML SYR IV ONE (12:00)
[2016-06-18] MEDS ORDERED: PROPOFOL 200 MG/20 ML AMP IV ONE (12:00)
[2016-06-18] MEDS ORDERED: LACTATED RINGER'S 1000 ML INJ 1,000 ML IV ONE (12:00)
[2016-06-18] MEDS ORDERED: KETOROLAC TROMETHAMINE 60 MG/2 ML (IM) VIAL IM ONE (12:00)
[2016-06-18] MEDS: ONDANSETRON HCL 4 MG/2 ML VIAL IVP PRN (14:13)
[2016-06-18] MEDS ORDERED: BUPIVACAINE/EPINEPHRINE 0.25% PF 30 ML VIAL ONE (14:53)
[2016-06-18] MEDS ORDERED: FAMOTIDINE 20 MG/2 ML VIAL ONE (15:27)
[2016-06-18] MEDS ORDERED: DEXAMETHASONE SOD PHOS 4 MG/ML VIAL ONE (15:27)
--- NOTE | 2016-06-18 16:57 | HHI.PR ---
Immediate Post Op Note Procedure Date: Jun 18, 2016 Pre Op Diagnosis: (1) Acute pancreatitis due to calculus of common bile duct Post Op Diagnosis: (1) Acute pancreatitis due to calculus of common bile duct Surgeon: Delmar Charlton Field Observer(s): Trixie Marcum Procedure: Lap Farnaz Findings: acute cholecystitis, multiple stones Complications: none Specimen(s) removed: GB Estimated blood loss: 50ml Anesthesia: General, Local Drains: None IVF Patient to: PACU Patient Condition: Good Delmar Charlton MD Jun 18, 2016 16:57
[2016-06-18] MEDS ORDERED: MIDAZOLAM HCL 2 MG/2 ML VIAL ONE (17:23)
[2016-06-18] MEDS ORDERED: fentaNYL CITRATE 250 MCG/5 ML AMP ONE (17:24)
[2016-06-18] MEDS ORDERED: DO NOT ADM ANY ANTICOAGULANT DRUGS XX PRN (17:45)
--- NOTE | 2016-06-18 20:16 | HHI.DS ---
Discharge Summary Admission Date Jun 16, 2016 at 03:28 Discharge Date: Jun 18, 2016 Admitting Diagnosis acute pancreatitis; choledocholithiasis (1) Acute pancreatitis due to calculus of common bile duct ICD Code: K85.90 (2) Choledocholithiasis with obstruction ICD Code: K80.51 (3) Obstructive uropathy ICD Code: N13.9 Procedures Lap Cholecystectomy 06/18/16 Brief History - From Admission 45-year-old female who was recently diagnosed with cholelithiasis was brought to the ED yesterday for evaluation of an acute and worsening abdominal pain rated 10/10 in intensity and associated with emesis described as bilious and followed by dry heaves. Patient states she was unable to take any by mouth. In the past 4 months she has had abdominal pain for which she had abdomen/pelvis CT performed and revealing gallstone. She was prescribed tramadol however states yesterday she is had no relief. Patient has an appointment with her PCP on 06/28/16. She denies any GI bleed. During my exam , she has no chest pain or shortness of breath. CBC/BMP: 06/17/16 0600 06/18/16 0729 Significant Findings Laboratory Tests Test 06/16/16 06/16/16 06/17/16 06/18/16 00:25 01:20 06:00 07:29 Mean Platelet Volume 11.7 FL 11.3 FL (7.0-11.0) (7.0-11.0) Neutrophils (%) (Auto) 75.2 % 81.2 % (16.0-70.0) (16.0-70.0) Monocytes (%) (Auto) 8.3 % (0.0-8.0) Chloride Level 108 MEQ/L 111 MEQ/L (98-107) (98-107) Estimat Glomerular Filtration 71 ML/MIN (>89) 79 ML/MIN (>89) 88 ML/MIN (>89) Rate Total Bilirubin 2.2 MG/DL 1.8 MG/DL 1.5 MG/DL (0.2-1.0) (0.2-1.0) (0.2-1.0) Direct Bilirubin 1.2 MG/DL (0.0-0.2) Aspartate Amino Transf 599 U/L (15-37) 159 U/L (15-37) 56 U/L (15-37) (AST/SGOT) Alanine Aminotransferase 409 U/L (10-53) 248 U/L (10-53) 163 U/L (10-53) (ALT/SGPT) Alkaline Phosphatase 172 U/L 143 U/L 135 U/L (45-117) (45-117) (45-117) Lipase GREATER THAN 3315 U/L 89847 U/L (73-393) (73-393) Urine Color AVA (YELLW/STRAW) Urine Protein 30 mg/dL (NEG-TRACE) Urine Glucose (UA) 100 mg/dL (NEG) Urine Ketones 40 mg/dL (NEG) Urine Squamous Epithelial > 8 /hpf (0-5) Cells Urine Bacteria RARE /hpf (NONE) Platelet Count 134 TH/MM3 (150-450) Neutrophils # (Auto) 8.8 TH/MM3 (1.8-7.7) Carbon Dioxide Level 18.4 MEQ/L 19.8 MEQ/L (21.0-32.0) (21.0-32.0) Random Glucose 67 MG/DL 67 MG/DL (74-106) (74-106) Calcium Level 8.1 MG/DL 8.2 MG/DL (8.5-10.1) (8.5-10.1) Total Protein 5.5 GM/DL 6.1 GM/DL (6.4-8.2) (6.4-8.2) Albumin 2.6 GM/DL 2.7 GM/DL (3.4-5.0) (3.4-5.0) Blood Urea Nitrogen 6 MG/DL (7-18) Imaging Last Impressions GI Procedure 06/16/16 0000 Signed Impressions: Service Date/Time: Thursday, June 16, 2016 13:56 - CONCLUSION: ERCP as above. Tyler Bergman MD Abdomen/Pelvis CT 06/16/16 0000 Signed Impressions: Service Date/Time: Thursday, June 16, 2016 02:28 - CONCLUSION: 1. Moderate severity acute pancreatitis. Considerable peripancreatic edema but nothing organized or drainable. No evidence of parenchymal necrosis. 2. Cholelithiasis ; numerous small stones are seen in the gallbladder and the CT suggests the possibility of stones in the mid and distal portions of the common bile duct. Please see above. 3. Right ovarian cysts. 4. Trace atelectasis of the right lung base. Antwan Ogden MD PE at Discharge GENERAL: NAD SKIN: Warm and dry. HEAD: Normocephalic. EYES: No scleral icterus. No injection or drainage. NECK: Supple, trachea midline. No JVD or lymphadenopathy. CARDIOVASCULAR: Regular rate and rhythm without murmurs, gallops, or rubs. RESPIRATORY: Breath sounds equal bilaterally. No accessory muscle use. GASTROINTESTINAL: Abdomen soft, mildly tender, nondistended. MUSCULOSKELETAL: No cyanosis, or edema. BACK: Nontender without obvious deformity. No CVA tenderness. Hospital Course Acute pancreatitis due to alcohol use of common bile duct: Now resolved as lipase of [address] abdomen/pelvis with finding of Moderate severity acute pancreatitis. Appreciate input from gastroenterology, patient status post ERCP. she was treated with IV Zosyn, IV fluid hydration, pain management accordingly an anti-emetics. Monitor lipase Cholelithiasis /Choledocholithiasis with obstruction: CT abdomen/pelvis with finding of Cholelithiasis. Appreciate input from marine welder, patient status post ERCP. General surgery consulted and patient underwent lap cholecystectomy 06/18/16. Transaminitis: Likely from above processes; improved prior to discharge GERD: PPI DD prophylaxis: Bilateral SCDs Pt Condition on Discharge: Stable Discharge Disposition: Discharge Home Discharge Time: <= 30 minutes Discharge Instructions DIET: Follow Instructions for: Heart Healthy Diet Activities you can perform: Regular-No Restrictions Follow up Referrals: Appointment for Follow Up with Delmar Charlton MD PCP Follow-up - 1 Week Continued Medications: Tramadol (Tramadol) 50 Mg Tab 50 MG PO Q8H PRN PAIN SCALE 6 TO 10 #30 Ref 0 Joesph Buenrostro MD Jun 18, 2016 20:16
[2016-06-18] MEDS ORDERED: NORC5TAB PO (20:23)
--- NOTE | 2016-06-20 13:26 | MP ---
cc: OBED HERZOG DATE OF SURGERY 06/18/2016 PREOPERATIVE DIAGNOSIS Gallstone pancreatitis POSTOPERATIVE DIAGNOSIS Gallstone pancreatitis PROCEDURE Laparoscopic cholecystectomy ATTENDING SURGEON Obed Herzog MD CAVALRY OFFICER Staff ANESTHESIA General and local anesthetic BLOOD LOSS 50 cc COMPLICATIONS None FINDINGS Multiple large and small gallstones completely filling the gallbladder. INDICATIONS FOR PROCEDURE The patient is a 44-year-old female who developed severe epigastric abdominal pain presented to the emergency department of [facility]. After evaluation, the patient was found to have a pancreatitis and a large amount of gallstones. The patient underwent conservative management of her gallstone pancreatitis, as well as ERCP to clear her common bile duct. General surgery was consulted for cholecystectomy. After the risks, benefits, and alternatives were discussed with the patient about the indications for cholecystectomy and her disease, she wished to undergo the procedure prior to discharge. PROCEDURE After informed consent was obtained, the patient was taken to the operating room, placed in a supine position, placed under general endotracheal anesthesia. The patient's abdomen was prepped and draped in a sterile fashion. Time-out was performed. The abdomen was entered through an Optiview entrance just to the left of the umbilicus with a 5-mm port. Insufflated the abdomen and surveyed the abdomen with a 5 mm 30 degree camera and there was no evidence of any complication from our entry. We placed a 10-mm port in the subxiphoid position and two 5 mm ports in the right upper quadrant under direct visualization with the laparoscope. Local anesthetic was used at all port sites as well. We were then able to grasp the gallbladder at the fundus and retracted it upward. We dissect out the triangle of Calot with the Harmonic scalpel, as well as the [place] dissector. Critical view of safety was obtained. We initially divided the artery with one clip proximal, clip distal in the artery and divided this with Endoshears. We were placing clips on the cystic duct. One of the clips on the patient's side of the artery was dislodged and there was a small minor bleeding from the cystic artery. We did use the Harmonic to get control of the bleeding at stump of the cystic artery and also placed a clip over this as well with excellent hemostasis. We then continued our dissection and doubly clipped proximal and singly clipped distal to the cystic duct and divided this with Endoshears. We used the hook electrocautery to take the gallbladder off the gallbladder bed without difficulty. We then were able to remove the gallbladder from the abdomen with the EndoCatch bag through the subxiphoid port. At this point we performed some irrigation and suctioned a few small blood clots out from the patient's right upper quadrant. We had excellent hemostasis. No bile leak. No evidence of any complications. We then removed all ports under the visualization of a laparoscope and expressed pneumoperitoneum. We closed the 10-mm port subxiphoid position with a [id number] 0 Vicryl suture. We closed the skin with 4-0 Monocryl and Dermabond. The patient was discontinued anesthesia and taken to the PACU in stable condition. The patient tolerated procedure well. No apparent complications. All counts correct. I was present and scrubbed for the entire procedure. MD VALENTINA Sher/EARLE /10:47 AM /1:11 PM MTDGerardo
== END 2016-06-18 20:47 | disposition home or self-care (01) | DRG 418 ==
LOC: PHED 00:04 → PHEDA 03:28 → N06B 06:53
PROVIDERS: ADMIT Hospitalist; ATTEND Hospitalist
PROC: 0F798ZZ Dilation of Common Bile Duct, Via Natural or Artificial Opening Endoscopic (ICD-10-PCS; 2016-06-16)
PROC: 0FT44ZZ Resection of Gallbladder, Percutaneous Endoscopic Approach (ICD-10-PCS; principal; 2016-06-16 13:30)
DX: K85.10 Biliary acute pancreatitis without necrosis or infection (principal); K80.11 Calculus of gallbladder with chronic cholecystitis with obstruction; K66.8 Other specified disorders of peritoneum; K21.9 Gastro-esophageal reflux disease without esophagitis; K85.20 Alcohol induced acute pancreatitis without necrosis or infection; K86.89 Other specified diseases of pancreas; N13.9 Obstructive and reflux uropathy, unspecified; Z87.442 Personal history of urinary calculi; Z90.710 Acquired absence of both cervix and uterus; F17.210 Nicotine dependence, cigarettes, uncomplicated; F10.20 Alcohol dependence, uncomplicated
CPT/HCPCS: 74177; 74330; 80053; 81001; 82248; 83690; 85025; 85610; 88304; 96361; 96374; 96375; 96376; C1769; J1100; J1170; J1885; J2175; J2250; J2405; J2543; J2550; J2710; J3010; J7030; J7120; Q9967

== ENCOUNTER 2017-02-24 20:00 | Emergency (ER) | payer BC, MEDICAID ==
[~2017-02-24] VITALS: Ht 182.9 cm; Wt 86.7 kg
[~2017-02-24 20:00] MED LIST changes: +NORC5TAB PO; -OXYC1TAB36 PO; -ZOFR4TAB3 SL
[2017-02-24 20:10] VITALS: BP 118/78; PULSE 81; RESP 16; TEMP 98.4; O2SAT 98
--- NOTE | 2017-02-24 21:40 | PD ---
HPI . Right ear pain Chief Complaint: ENT Complaint Time Seen by Provider: 21:16 Travel History International Travel<30 days: No Contact w/Intl Traveler<30days: No Traveled to known affect area: No History of Present Illness HPI 46-year-old female presents to the emergency department for evaluation of right ear pain. Patient states the symptoms have been persistent for 4 days. Patient describes the pain as pressure in the right ear as extending downward into her upper jaw. Patient has any fevers, chills, malaise, nausea, vomiting, abdominal pain. Patient denies any sore throat or cough. PFSH Past Medical History Medical History: Denies Significant Hx Cancer: No Cardiovascular Problems: No Chemotherapy: No Diminished Hearing: No Endocrine: No Gastrointestinal Disorders: Yes (GALLSTONES) GERD: Yes Genitourinary: Yes Kidney Stones: Yes Musculoskeletal: No Neurologic: No Psychiatric: No Reproductive: No Respiratory: No Immunizations Current: Yes Radiation Therapy: No Tetanus Vaccination: Unknown Influenza Vaccination: No ?: Unknown : 4 Para: 3 Miscarriage: 1 Past Surgical History Section: Yes (X1) Cholecystectomy: Yes Gynecologic Surgery: Yes (hysterectomy and ) Hysterectomy: Yes Social History Alcohol Use: No Tobacco Use: Yes (1/2 PK) Substance Use: No Allergies-Medications (Allergen,Severity, Reaction): Coded Allergies: No Known Allergies (Verified , 02/24/17) Reported Meds & Prescriptions Reported Meds & Active Scripts Active No Active Prescriptions or Reported Medications Review of Systems Except as stated in HPI: all other systems reviewed are Neg Physical Exam Narrative GENERAL: Well-nourished, well-developed pleasant 46-year-old female patient in no acute distress. Nontoxic appearing. SKIN: Focused skin assessment warm/dry. HEAD: Normocephalic. Atraumatic. EYES: No scleral icterus. No injection or drainage. EARS: Bilateral pinnae and external canals appear within normal limits. Bilateral tympanic membranes without erythema, dullness or perforation. NECK: Supple, trachea midline. No JVD or lymphadenopathy. CARDIOVASCULAR: Regular rate and rhythm without murmurs, gallops, or rubs. RESPIRATORY: Breath sounds equal bilaterally. No accessory muscle use. GASTROINTESTINAL: Abdomen soft, non-tender, nondistended. MUSCULOSKELETAL: No cyanosis, or edema. BACK: Nontender without obvious deformity. No CVA tenderness. Data Data Last Documented VS Vital Signs Date Time Temp Pulse Resp B/P (MAP) Pulse Ox O2 Delivery O2 Flow Rate FiO2 02/24/17 20:10 98.4 81 16 118/78 (91) 98 [facility] Medical Decision Making Medical Screen Exam Complete: Yes Emergency Medical Condition: Yes Differential Diagnosis Differential diagnoses include but not limited to otitis media, sinusitis, otitis externa, allergies, congestion Narrative Course 46-year-old female presents emergency department for evaluation of right ear pain 4 days. Patient denies any fevers, chills, malaise. Patient does have the pain is pressure extending downward into her jaw. Patient has clear nasal discharge consistent with allergies. There is no signs or symptoms of ear infection, her tympanic membranes bilaterally are pearly calvo and intact. Patient told she has ear congestion which could be related to seasonal allergies. Patient instructed to start taking Claritin or Zyrtec over-the- counter to help resolve ear congestion. Patient will be discharged home. Diagnosis Primary Impression: Congestion of right ear Referrals: Primary Care Physician Patient Instructions: Earache (GEN), General Instructions Additional Instructions: Please return to emergency department if your symptoms return or worsen. Follow up with your primary care provider. Take [id number] Claritin or Zyrtec to help resolve ear congestion. Scripts No Active Prescriptions or Reported Meds Disposition: DISCHARGE HOME Condition: Stable Samira Gramajo Feb 24, 2017 21:40
== END 2017-02-24 21:56 | disposition home or self-care (01) ==
LOC: PHED 20:00 → PHEFT 21:56
DX: H83.8X1 Other specified diseases of right inner ear (principal); J30.2 Other seasonal allergic rhinitis; Z72.0 Tobacco use; Z87.19 Personal history of other diseases of the digestive system; Z87.448 Personal history of other diseases of urinary system
CPT/HCPCS: 99282

== ENCOUNTER 2017-04-25 18:48 | Emergency (ER) | payer BC ==
[~2017-04-25] VITALS: Ht 182.9 cm; Wt 89.0 kg
[2017-04-25 18:52] VITALS: BP 132/75; PULSE 73; RESP 16; TEMP 97.5; O2SAT 100
[2017-04-25] MEDS ORDERED: MECLIZINE HCL 25 MG TAB PO ONE (19:15)
[2017-04-25] MEDS ORDERED: ONDANSETRON ODT 4 MG TAB PO ONE (19:15)
[2017-04-25] MEDS ORDERED: ZOFR4TAB3 SL (19:19)
[2017-04-25] MEDS ORDERED: MECL-62 PO (19:19)
--- NOTE | 2017-04-25 19:24 | PD ---
HPI Chief Complaint: Dizziness Time Seen by Provider: 18:57 Travel History International Travel<30 days: No Contact w/Intl Traveler<30days: No Traveled to known affect area: No History of Present Illness HPI This patient complains of vertigo. She has a room spinning dizziness is worse with position change. She has had this before. He denies headache or head injury or fever. Symptoms severity is moderate. She has nausea. Duration is 2 days. No alleviating factors PFSH Past Medical History Cancer: No Cardiovascular Problems: No Chemotherapy: No Diminished Hearing: No Endocrine: No Gastrointestinal Disorders: Yes (GALLSTONES) GERD: Yes Genitourinary: Yes Kidney Stones: Yes Musculoskeletal: No Neurologic: No Psychiatric: No Reproductive: No Respiratory: No Immunizations Current: Yes Radiation Therapy: No Tetanus Vaccination: Unknown Influenza Vaccination: No ?: Not LMP: hysterectomy : 4 Para: 3 Miscarriage: 1 Past Surgical History Section: Yes (X1) Cholecystectomy: Yes Gynecologic Surgery: Yes (hysterectomy and ) Hysterectomy: Yes Other Surgery: Yes Social History Alcohol Use: No Tobacco Use: Yes (1/2 PK) Substance Use: No Allergies-Medications (Allergen,Severity, Reaction): Coded Allergies: No Known Allergies (Verified Adverse Reaction, Unknown, 04/25/17) Reported Meds & Prescriptions Reported Meds & Active Scripts Active Zofran Odt (Ondansetron Odt) 4 Mg Tab 4 Mg SL Q6HR PRN Meclizine (Meclizine HCl) 25 Mg Tab 25 Mg PO TID PRN Review of Systems General / Constitutional: No: Fever Eyes: No: Visual changes HENT: Positive: Vertigo, No: Headaches Cardiovascular: No: Chest Pain or Discomfort Respiratory: No: Shortness of Breath Gastrointestinal: Positive: Nausea, No: Abdominal Pain Genitourinary: No: Dysuria Musculoskeletal: No: Pain Skin: No Rash Neurologic: No: Weakness Psychiatric: No: Depression Endocrine: No: Polydipsia Hematologic/Lymphatic: No: Easy Bruising Physical Exam Narrative GENERAL: Well-nourished, well-developed patient with nausea and vertigo . SKIN: Focused skin assessment reveals no rash and nodules. Skin is Warm and dry. HEAD: Atraumatic. Normocephalic. EYES: Pupils equal and round. No scleral icterus. No injection or drainage. ENT: No nasal bleeding or discharge. Mucous membranes pink and moist. NECK: Trachea midline. No JVD. CARDIOVASCULAR: Regular rate and rhythm. No murmur appreciated. RESPIRATORY: No accessory muscle use. Clear to auscultation. Breath sounds equal bilaterally. GASTROINTESTINAL: Abdomen soft, non-tender, nondistended. Hepatic and splenic margins not palpable. MUSCULOSKELETAL: No obvious deformities. No clubbing. No cyanosis. No edema. NEUROLOGICAL: Awake and alert. No obvious cranial nerve deficits. Motor grossly within normal limits. Normal speech. PSYCHIATRIC: Appropriate mood and affect; insight and judgment normal. Data Data Last Documented VS Vital Signs Date Time Temp Pulse Resp B/P (MAP) Pulse Ox O2 Delivery O2 Flow Rate FiO2 04/25/17 18:59 Room Air 04/25/17 18:52 97.5 73 16 132/75 (94) 100 Orders Orders Meclizine (Antivert) (04/25/17 19:15) Ondansetron Odt (Zofran Odt) (04/25/17 19:15) [facility] Medical Decision Making Medical Screen Exam Complete: Yes Emergency Medical Condition: Yes Medical Record Reviewed: Yes Differential Diagnosis Vertigo, labyrinthitis, otitis Narrative Course I have reviewed the patient's electronic medical record. Patient is neurologically intact. No indication for imaging. Presentation is consistent with positional vertigo I gave her dose of meclizine and Zofran and prescriptions for the same Recommend primary care follow-up Diagnosis Primary Impression: Positional vertigo Qualified Codes: H81.10 - Benign paroxysmal vertigo, unspecified ear Additional Instructions: The patient was advised to follow up with their physician and return if they worsen. The patient was warned about potential sedation for the medications they will receive on prescription. Med/Other Pt SpecificInfo: Prescription(s) given Scripts Ondansetron Odt (Zofran Odt) 4 Mg Tab 4 MG SL Q6HR Y for Nausea/Vomiting, #20 TAB 0 Refills Prov: Dar Conroy MD 04/25/17 Meclizine (Meclizine) 25 Mg Tab 25 MG PO TID Y for VERTIGO, #25 TAB 0 Refills Prov: Dar Conroy MD 04/25/17 Disposition: 01 DISCHARGE HOME Condition: Stable Dar Conroy MD Apr 25, 2017 19:24
== END 2017-04-25 19:30 | disposition home or self-care (01) ==
LOC: PHED 18:48
DX: H81.10 Benign paroxysmal vertigo, unspecified ear (principal); R11.0 Nausea; K21.9 Gastro-esophageal reflux disease without esophagitis; F17.200 Nicotine dependence, unspecified, uncomplicated; Z87.442 Personal history of urinary calculi; Z79.899 Other long term (current) drug therapy
CPT/HCPCS: 99284